=== PATIENT | female | born 1995 | race Caucasian/White ===

== ENCOUNTER 2019-07-04 21:43 | Observation (INO) | payer BC ==
[2019-07-04] MEDS ORDERED: SODIUM CHLORIDE 0.9% 1,000 ML IV STA ×2 (22:09→22:45)
[2019-07-04] MEDS ORDERED: ONDANSETRON 4 MG/2 ML VIAL IVP STA (22:10)
[2019-07-04 22:25] LABS: Basophils # (A) 0.1 k/uL (0-0.2); Basophils % (A) 1 %; Eosinophils # (A) 0.2 k/uL (0-0.7); Eosinophils % (A) 1 %; HCT 41.1 % (34.0-46.0); HGB 13.8 gm/dL (11.4-16.0); Lymphocytes # (A) 1.7 k/uL (1.0-4.8); Lymphocytes % (A) 12 %; MCH 31.4 pg (25.0-35.0); MCHC 33.7 g/dL (31.0-37.0); MCV 93.1 fL (80.0-100.0); Mean Platelet Volume 7.3; Monocytes # (A) 0.6 k/uL (0-1.0); Monocytes % (A) 4 %; Neutrophils # (A) 11.2 k/uL (1.3-7.7); Neutrophils % (A) 80 %; Platelet Count 163 k/uL (150-450); RBC 4.41 m/uL (3.80-5.40); RDW 11.9 % (11.5-15.5); WBC 13.9 k/uL (3.8-10.6)
[2019-07-04 22:27] LABS: Amorphous Sediment,Urine Rare /hpf; Appearance,Urine Cloudy (Clear); Bacteria,Urine Occasional /hpf; Bilirubin,Urine Negative (Negative); Blood,Urine Negative (Negative); Color,Urine Yellow; Glucose,Urine (UA) Negative (Negative); Ketones,Urine 1+ (Negative); Leukocyte Esterase,Urine Large (Negative); Mucus,Urine Few /hpf; Nitrite,Urine Negative (Negative); PH, Urine 8.5 (5.0-8.0); Protein,Urine 1+ (Negative); Specific Gravity,Urine 1.025 (1.001-1.035); Squamous Epithelial Cell,Urine 15 /hpf (0-4)
[2019-07-04 22:34] LABS: ALT 22 U/L (9-52); AST 21 U/L (14-36); African American GFR (CKD) >90 (>60 ml/min/1.73 sqM); Albumin 4.4 g/dL (3.5-5.0); Alkaline Phosphatase 75 U/L (38-126); Amylase 50 U/L (30-110); Anion Gap 12 mmol/L; Blood Urea Nitrogen 16 mg/dL (7-17); Calcium 9.3 mg/dL (8.4-10.2); Carbon Dioxide 24 mmol/L (22-30); Chloride 103 mmol/L (98-107); Glucose 140 mg/dL (74-99); Sodium 139 mmol/L (137-145); Total Bilirubin 2.6 mg/dL (0.2-1.3); Total Protein 7.4 g/dL (6.3-8.2)
[2019-07-04] MEDS ORDERED: KETOROLAC 30 MG/ML 1 ML VIAL IVP STA (22:45)
[2019-07-04 23:12] LABS: Amphetamine Screen,Urine Not Detected (NotDetected); Barbiturate Screen,Urine Not Detected (NotDetected); Benzodiazepines Screen,Urine Not Detected (NotDetected); Cocaine Screen,Urine Not Detected (NotDetected); Methadone Screen, Urine Not Detected (NotDetected); Opiate Screen,Urine Not Detected (NotDetected); Oxycodone Screen, Urine Not Detected (NotDetected); Phencyclidine Screen,Urine Not Detected (NotDetected); Tricyclic Antidepressant,Urine Not Detected (NotDetected); Urn Cannabinoid Scrn Detected (NotDetected)
--- NOTE | 2019-07-04 23:37 | CT ---
EXAMINATION TYPE: CT abdomen pelvis w con DATE OF EXAM: 07/04/2019 COMPARISON: None HISTORY: pain CT DLP: 505.8 mGycm Automated exposure control for dose reduction was used. TECHNIQUE: Helical acquisition of images was performed from the lung bases through the pelvis. CONTRAST: Performed without Oral Contrast and with IV Contrast, patient injected with 100 mL of Isovue 300. FINDINGS: Lung bases are clear. There is no pleural effusion. Heart size is normal. Liver spleen pancreas gallbladder appear normal. Bile ducts are not dilated. There is no adrenal mass. Kidneys show satisfactory contrast opacification. There is no hydronephrosi s. Ureters are not dilated. Bladder distends smoothly. Uterus is anteverted. There is no free fluid i n the pelvis. There is no inguinal hernia. There is probably a 2 cm cyst on the right ovary. There ap pears to be lateral thickened appendix that measures 9 to 10 mm. There is slight increased density in the periappendiceal fat. There is no sign of a bowel obstruction. There is no free air. There is no ascites. Lumbar spine is intact. Bony pelvis is intact. IMPRESSION: MILDLY THICKENED APPENDIX WITH VERY SLIGHT SURROUNDING INFLAMMATORY CHANGES THAT IS CONSISTENT WITH A PPENDICITIS.
[2019-07-05] MEDS ORDERED: PIPERACILLIN-TAZOBACTAM 3.375 GM in SODIUM CHLORIDE 0.9% 100 ML IVPB STA (00:05)
[2019-07-05] MEDS ORDERED: AMPICILLIN-SULBACTAM 3 GM in SODIUM CHLORIDE 0.9% 100 ML IVPB STA (00:16)
[2019-07-05] MEDS ORDERED: NALOXONE 0.4 MG/ML 1 ML VIAL IV PRN (00:18)
--- NOTE | 2019-07-05 00:18 | ED ---
General Adult HPI - General Chief complaint: Abdominal Pain Stated complaint: Vomiting,Abd Pain Time Seen by Provider: 07/04/19 21:57 Source: patient, family, RN notes reviewed Mode of arrival: ambulatory Limitations: no limitations - History of Present Illness Initial comments: 24-year-old female without any significant past medical history presents to the emergency department for a chief complete of abdominal pain times one day. Patient states this started several hours prior to arrival. States it is in her whole abdomen. States it is sharp in nature. Patient is in distress secondary to the pain. Patient states that prior to having the pain she has had nausea vomiting and diarrhea for about 2 days. Denies fevers at home.Patient has no ot her complaints at this time including shortness of breath, chest pain, nausea or vomiting, headache, or visual changes. - Related Data Allergies Allergy/AdvReac Type Severity Reaction Status Date / Time No Known Allergies Allergy Verified 07/04/19 21:47 Review of Systems ROS Statement: Those systems with pertinent positive or pertinent negative responses have been documented in the HPI. ROS Other: All systems not noted in ROS Statement are negative. Past Medical History Past Medical History: No Reported History History of Any Multi-Drug Resistant Organisms: None Reported Past Surgical History: No Surgical Hx Reported Past Psychological History: No Psychological Hx Reported Smoking Status: Current every day smoker Past Alcohol Use History: Occasional Past Drug Use History: None Reported, Marijuana General Exam Limitations: no limitations General appearance: alert, in no apparent distress Head exam: Present: atraumatic, normocephalic, normal inspection Eye exam: Present: normal appearance, PERRL, EOMI. Absent: scleral icterus, conjunctival injection, periorbital swelling ENT exam: Present: normal exam, mucous membranes moist Neck exam: Present: normal inspection. Absent: tenderness, meningismus, lymphadenopathy Respiratory exam: Present: normal lung sounds bilaterally. Absent: respiratory distress, wheezes, rales, rhonchi, stridor GI/Abdominal exam: Present: soft, tenderness (Right lower quadrant suprapubic tenderness with mild guarding, no rebound), normal bowel sounds. Absent: distended, rebound, rigid Expanded GI/Abdominal exam: Present: obturator sign, Rovsing's sign, tenderness at McBurney's Point. Absent: psoas sign, heel tap sign, Todd's sign Neurological exam: Present: alert Course Vital Signs 07/04/19 21:45 Temperature 98.6 F Pulse Rate 72 Respiratory 18 Rate Blood Pressure 109/61 O2 Sat by Pulse 98 Oximetry Procedures - [place] Protocol (Time Out) Nurse: Shyla Sherman Medical Decision Making - Medical Decision Making Initial exam was limited secondary to pain. However I did reevaluate patient after pain medication given and she does have findings consistent with elvin endicitis such as right lower quadrant pain, McBurney point tenderness, obturator sign and Rovsing sign. Patient does have a white blood cell count of 13.7. Mild elevated lactic acidosis of 2.7 which is likely secondary to vomiting and dehydration rather than severe sepsis.CT was ordered which showed mildly thickened appendix with very slight surrounding inflammatory changes consistent with appendicitis. Dr. Quintanilla spoke with Dr. Rasheed, recommends Unasyn. Patient will be admitted and made nothing by mouth. - Lab Data Result diagrams: 07/04/19 22:12 07/04/19 22:12 Lab Results 07/04/19 07/04/19 07/04/19 Range/Units 22:12 22:12 22:12 WBC 13.9 H (3.8-10.6) k/uL RBC 4.41 (3.80-5.40) m/uL Hgb 13.8 (11.4-16.0) gm/dL Hct 41.1 (34.0-46.0) % MCV 93.1 (80.0-100.0) fL MCH 31.4 (25.0-35.0) pg MCHC 33.7 (31.0-37.0) g/dL RDW 11.9 (11.5-15.5) % Plt Count 163 (150-450) k/uL Neutrophils % 80 % Lymphocytes % 12 % Monocytes % 4 % Eosinophils % 1 % Basophils % 1 % Neutrophils # 11.2 H (1.3-7.7) k/uL Lymphocytes # 1.7 (1.0-4.8) k/uL Monocytes # 0.6 (0-1.0) k/uL Eosinophils # 0.2 (0-0.7) k/uL Basophils # 0.1 (0-0.2) k/uL Sodium 139 (137-145) mmol/L Potassium 4.0 (3.5-5.1) mmol/L Chloride 103 (98-107) mmol/L Carbon Dioxide 24 (22-30) mmol/L Anion Gap 12 mmol/L BUN 16 (7-17) mg/dL Creatinine 0.78 (0.52-1.04) mg/dL Est GFR (CKD-EPI)AfAm >90 (>60 ml/min/1.73 sqM) Est GFR (CKD-EPI)NonAf >90 (>60 ml/min/1.73 sqM) Glucose 140 H (74-99) mg/dL Plasma Lactic Acid Deon (0.7-2.0) mmol/L Calcium 9.3 (8.4-10.2) mg/dL Total Bilirubin 2.6 H (0.2-1.3) mg/dL AST 21 (14-36) U/L ALT 22 (9-52) U/L Alkaline Phosphatase 75 (38-126) U/L Total Protein 7.4 (6.3-8.2) g/dL Albumin 4.4 (3.5-5.0) g/dL Amylase 50 (30-110) U/L Lipase 41 (23-300) U/L Urine Color Urine Appearance (Clear) Urine pH (5.0-8.0) Ur Specific [place] (1.001-1.035) Urine Protein (Negative) Urine Glucose (UA) (Negative) Urine Ketones (Negative) Urine Blood (Negative) Urine Nitrite (Negative) Urine Bilirubin (Negative) Urine Urobilinogen (<2.0) mg/dL Ur Leukocyte Esterase (Negative) Ur Squamous Epith Cells (0-4) /hpf Amorphous Sediment (None) /hpf Urine Bacteria (None) /hpf Urine Mucus (None) /hpf Urine HCG, Qual Not Detected (Not Detectd) Urine Opiates Screen (NotDetected) Ur Oxycodone Screen (NotDetected) Urine Methadone Screen (NotDetected) Ur Propoxyphene Screen (NotDetected) Ur Barbiturates Screen (NotDetected) U Tricyclic Antidepress (NotDetected) Ur Phencyclidine Scrn (NotDetected) Ur Amphetamines Screen (NotDetected) U Methamphetamines Scrn (NotDetected) U Benzodiazepines Scrn (NotDetected) Urine Cocaine Screen (NotDetected) U Marijuana (THC) Screen (NotDetected) 07/04/19 07/04/19 07/04/19 Range/Units 22:12 22:12 22:12 WBC (3.8-10.6) k/uL RBC (3.80-5.40) m/uL Hgb (11.4-16.0) gm/dL Hct (34.0-46.0) % MCV (80.0-100.0) fL MCH (25.0-35.0) pg MCHC (31.0-37.0) g/dL RDW (11.5-15.5) % Plt Count (150-450) k/uL Neutrophils % % Lymphocytes % % Monocytes % % Eosinophils % % Basophils % % Neutrophils # (1.3-7.7) k/uL Lymphocytes # (1.0-4.8) k/uL Monocytes # (0-1.0) k/uL Eosinophils # (0-0.7) k/uL Basophils # (0-0.2) k/uL Sodium (137-145) mmol/L Potassium (3.5-5.1) mmol/L Chloride (98-107) mmol/L Carbon Dioxide (22-30) mmol/L Anion Gap mmol/L BUN (7-17) mg/dL Creatinine (0.52-1.04) mg/dL Est GFR (CKD-EPI)AfAm (>60 ml/min/1.73 sqM) Est GFR (CKD-EPI)NonAf (>60 ml/min/1.73 sqM) Glucose (74-99) mg/dL Plasma Lactic Acid Deon 2.7 H* (0.7-2.0) mmol/L Calcium (8.4-10.2) mg/dL Total Bilirubin (0.2-1.3) mg/dL AST (14-36) U/L ALT (9-52) U/L Alkaline Phosphatase (38-126) U/L Total Protein (6.3-8.2) g/dL Albumin (3.5-5.0) g/dL Amylase (30-110) U/L Lipase (23-300) U/L Urine Color Yellow Urine Appearance Cloudy H (Clear) Urine pH 8.5 H (5.0-8.0) Ur Specific [place] 1.025 (1.001-1.035) Urine Protein 1+ H (Negative) Urine Glucose (UA) Negative (Negative) Urine Ketones 1+ H (Negative) Urine Blood Negative (Negative) Urine Nitrite Negative (Negative) Urine Bilirubin Negative (Negative) Urine Urobilinogen 3.0 (<2.0) mg/dL Ur Leukocyte Esterase Large H (Negative) Ur Squamous Epith Cells 15 H (0-4) /hpf Amorphous Sediment Rare H (None) /hpf Urine Bacteria Occasional H (None) /hpf Urine Mucus Few H (None) /hpf Urine HCG, Qual (Not Detectd) Urine Opiates Screen Not Detected (NotDetected) Ur Oxycodone Screen Not Detected (NotDetected) Urine Methadone Screen Not Detected (NotDetected) Ur Propoxyphene Screen Not Detected (NotDetected) Ur Barbiturates Screen Not Detected (NotDetected) U Tricyclic Antidepress Not Detected (NotDetected) Ur Phencyclidine Scrn Not Detected (NotDetected) Ur Amphetamines Screen Not Detected (NotDetected) U Methamphetamines Scrn Not Detected (NotDetected) U Benzodiazepines Scrn Not Detected (NotDetected) Urine Cocaine Screen Not Detected (NotDetected) U Marijuana (THC) Screen Detected H (NotDetected) Disposition Clinical Impression: Appendicitis Disposition: ADMITTED IP TO THIS [facility] Condition: Good Is patient prescribed a controlled substance at d/c from ED?: No Referrals: None,Stated [Primary Care Provider] - 1-2 days Time of Disposition: 00:17
[2019-07-05] MEDS: SODIUM CHLORIDE 0.9% 1,000 ML IV SCH ×3 (00:40→17:10)
[2019-07-05] MEDS: HYDROmorphone 0.5 MG/0.5 ML SYRINGE IVP PRN ×4 (01:01→11:12)
[2019-07-05 01:18] VITALS: BMI 17.2
[2019-07-05] MEDS: AMPICILLIN-SULBACTAM 3 GM in SODIUM CHLORIDE 0.9% 100 ML IVPB SCH ×2 (07:47→16:49)
[2019-07-05] MEDS ORDERED: HEPARIN SODIUM,PORCINE 5,000 UNIT/ML 1 ML VIAL SQ ONE (08:19)
[2019-07-05] MEDS ORDERED: SCOPOLAMINE 1.5MG/72HR PATCH TRANSDERM ONE (08:23)
[2019-07-05] MEDS ORDERED: LIDOCAINE 1% 20 ML VIAL (10MG/ML) FOR IV START INTRADERMA PRN (08:23)
[2019-07-05] MEDS ORDERED: METOCLOPRAMIDE 5 MG/ML 2 ML VIAL IVP PRN (08:23)
[2019-07-05] MEDS ORDERED: DEXAMETHASONE SOD PHOSPHATE 10 MG/ML 1 ML VIAL IV ONE (08:23)
[2019-07-05] MEDS ORDERED: HYDROmorphone 0.5 MG/0.5 ML SYRINGE IVP PRN (08:23)
--- NOTE | 2019-07-05 08:26 | P.GSHP ---
History of Present Illness H&P Date: 07/05/19 CHIEF COMPLAINT: Right lower quadrant abdominal pain with appendicitis for 1 day. HISTORY OF PRESENT ILLNESS: The patient is a previously healthy 24-year-old female who presents with less than day history of periumbilical with right lower quadrant abdominal pain that is crampy dull ache in nature. No reports of prior abdominal pain. She states the intensity of the pain is moderate. No reports of intractable nausea and vomiting. She reports the pain is dull and achy. Additional workup consistent with acute appendicitis. She has been admitted for acute appendicitis. PAST MEDICAL HISTORY: See list. PAST SURGICAL HISTORY: See list. CURRENT MEDICATIONS: See list. ALLERGIES: See list. SOCIAL HISTORY: See list. FAMILY HISTORY: No Crohns disease and ulcerative colitis. REVIEW OF ORGAN SYSTEMS: CONSTITUTIONAL: Present fever, no chills. Denies recent weight loss. HEENT: Denies any trouble with vision, hearing or nosebleeds. No difficulty swallowing. LYMPHATIC: The patient denies any lumps and bumps around the neck. ENDOCRINE: Denies any thyroid disorders. Denies any blood sugar glucose intolerance. RESPIRATORY: Denies shortness of breath including chronic cough. CARDIOVASCULAR: Denies history of chest pain with exertion. GASTROINTESTINAL: Denies regurgitation of bile at night as well as intermittent nausea. No blood in stools. GENITOURINARY: Denies any blood in urine or increased urinary frequency. ` MUSCULOSKELETAL: Denies current joint arthritis. NEUROLOGIC: Denies any numbness or tingling along the distal extremities. No seizure disorders or headaches. PSYCHIATRIC: Denies any depression or suicidal ideation. HEMATOLOGIC: Denies any abnormal bleeding or bruising. PHYSICAL EXAMINATION: GENERAL: A 11-year-old female in no acute distress. Pleasant. HEENT: No sclera icterus. Extraocular movements grossly intact. Moist buccal mucosa. Head is atraumatic, normocephalic. Hears conversational speech. No nasal drainage. NECK: Supple without lymphadenopathy. No JV distention. CHEST: Non-labored respirations and equal bilateral excursions. CARDIOVASCULAR: Regular rate and rhythm. Palpable 2+ radial pulses. ABDOMEN: Soft, tender at the right lower quadrant without guarding. MUSCULOSKELETAL: No clubbing, cyanosis or edema. NEUROLOGIC: No focal or lateralizing signs. PSYCH: Appropriate affect. Alert and oriented to person, place and time. SKIN: Well perfused. Good skin turgor. LABS: Reviewed. White blood cell count elevated over 13,000. STUDIES: CT of the abdomen and pelvis reviewed with findings consistent with appendicitis. ASSESSMENT: 1. Right lower quadrant pain. 2. Appendicitis 3. Leukocytosis. PLAN: 1. I have discussed benefits and risks of laparoscopic appendectomy described. 2. Bilateral SCDs. 3. Antibiotics intravenous Thank you very much for allowing me to participate in the care of your patient. Past Medical History Past Medical History: No Reported History History of Any Multi-Drug Resistant Organisms: None Reported Past Surgical History: No Surgical Hx Reported Additional Past Surgical History / Comment(s): umbillical hernia repair when Past Psychological History: No Psychological Hx Reported Smoking Status: Current every day smoker Past Alcohol Use History: Occasional Past Drug Use History: None Reported, Marijuana Medications and Allergies Allergies Allergy/AdvReac Type Severity Reaction Status Date / Time No Known Allergies Allergy Verified 07/04/19 21:47 Surgical - Exam Vital Signs Temp Pulse Resp BP Pulse Ox 98.6 F 72 18 109/61 98 07/04/19 21:45 07/04/19 21:45 07/04/19 21:45 07/04/19 21:45 07/04/19 21:45 Results - Labs 07/04/19 22:12 07/04/19 22:12 Abnormal Lab Results - Last 24 Hours (Table) 07/04/19 07/04/19 07/04/19 Range/Units 22:12 22:12 22:12 WBC 13.9 H (3.8-10.6) k/uL Neutrophils # 11.2 H (1.3-7.7) k/uL Glucose 140 H (74-99) mg/dL Plasma Lactic Acid Deon 2.7 H* (0.7-2.0) mmol/L Total Bilirubin 2.6 H (0.2-1.3) mg/dL Urine Appearance (Clear) Urine pH (5.0-8.0) Urine Protein (Negative) Urine Ketones (Negative) Ur Leukocyte Esterase (Negative) Ur Squamous Epith Cells (0-4) /hpf Amorphous Sediment (None) /hpf Urine Bacteria (None) /hpf Urine Mucus (None) /hpf U Marijuana (THC) Screen (NotDetected) 07/04/19 07/04/19 07/05/19 Range/Units 22:12 22:12 02:05 WBC (3.8-10.6) k/uL Neutrophils # (1.3-7.7) k/uL Glucose (74-99) mg/dL Plasma Lactic Acid Deon 0.6 L (0.7-2.0) mmol/L Total Bilirubin (0.2-1.3) mg/dL Urine Appearance Cloudy H (Clear) Urine pH 8.5 H (5.0-8.0) Urine Protein 1+ H (Negative) Urine Ketones 1+ H (Negative) Ur Leukocyte Esterase Large H (Negative) Ur Squamous Epith Cells 15 H (0-4) /hpf Amorphous Sediment Rare H (None) /hpf Urine Bacteria Occasional H (None) /hpf Urine Mucus Few H (None) /hpf U Marijuana (THC) Screen Detected H (NotDetected) Diabetes panel 07/04/19 Range/Units 22:12 Sodium 139 (137-145) mmol/L Potassium 4.0 (3.5-5.1) mmol/L Chloride 103 (98-107) mmol/L Carbon Dioxide 24 (22-30) mmol/L BUN 16 (7-17) mg/dL Creatinine 0.78 (0.52-1.04) mg/dL Glucose 140 H (74-99) mg/dL Calcium 9.3 (8.4-10.2) mg/dL AST 21 (14-36) U/L ALT 22 (9-52) U/L Alkaline Phosphatase 75 (38-126) U/L Total Protein 7.4 (6.3-8.2) g/dL Albumin 4.4 (3.5-5.0) g/dL Calcium panel 07/04/19 Range/Units 22:12 Calcium 9.3 (8.4-10.2) mg/dL Albumin 4.4 (3.5-5.0) g/dL Pituitary panel 07/04/19 Range/Units 22:12 Sodium 139 (137-145) mmol/L Potassium 4.0 (3.5-5.1) mmol/L Chloride 103 (98-107) mmol/L Carbon Dioxide 24 (22-30) mmol/L BUN 16 (7-17) mg/dL Creatinine 0.78 (0.52-1.04) mg/dL Glucose 140 H (74-99) mg/dL Calcium 9.3 (8.4-10.2) mg/dL Adrenal panel 07/04/19 Range/Units 22:12 Sodium 139 (137-145) mmol/L Potassium 4.0 (3.5-5.1) mmol/L Chloride 103 (98-107) mmol/L Carbon Dioxide 24 (22-30) mmol/L BUN 16 (7-17) mg/dL Creatinine 0.78 (0.52-1.04) mg/dL Glucose 140 H (74-99) mg/dL Calcium 9.3 (8.4-10.2) mg/dL Total Bilirubin 2.6 H (0.2-1.3) mg/dL AST 21 (14-36) U/L ALT 22 (9-52) U/L Alkaline Phosphatase 75 (38-126) U/L Total Protein 7.4 (6.3-8.2) g/dL Albumin 4.4 (3.5-5.0) g/dL
[2019-07-05] MEDS ORDERED: fentaNYL (PF) 50 MCG/ML 2 ML AMP ONE (09:01)
[2019-07-05] MEDS ORDERED: KETOROLAC 30 MG/ML 1 ML VIAL ONE (09:01)
[2019-07-05] MEDS ORDERED: LIDOCAINE 1% INJ 10MG/ML (20 ML MDV) ONE (09:01)
[2019-07-05] MEDS ORDERED: PROPOFOL 10 MG/ML 20 ML VIAL IV ONE (09:01)
[2019-07-05] MEDS ORDERED: ROCURONIUM BROMIDE 10 MG/ML 10 ML VIAL IV ONE (09:01)
[2019-07-05] MEDS ORDERED: GLYCOPYRROLATE 0.2 MG/ML 2 ML VIAL ONE (09:01)
[2019-07-05] MEDS ORDERED: NEOSTIGMINE 1 MG/ML 10 ML VIAL ONE (09:01)
[2019-07-05] MEDS ORDERED: MIDAZOLAM 2 MG/2 ML VIAL ONE (09:01)
[2019-07-05] MEDS ORDERED: IV FLUID CONTINUATION 400 ML IV ONE (09:05)
[2019-07-05] MEDS ORDERED: BUPIVACAINE (PF) 0.25% 30 ML VIAL SQ ONE ×2 (09:37→09:53)
[2019-07-05] MEDS ORDERED: LACTATED RINGERS 1,000 ML IV ONE (09:53)
[2019-07-05] MEDS ORDERED: ACETAMINOPHEN TAB 325 MG TAB PO PRN (09:59)
--- NOTE | 2019-07-05 10:01 | P.OP ---
Date of Procedure: 07/05/19 Description of Procedure: SURGEON: [place] MD INTERNAL WHOLESALER: None. PREOPERATIVE DIAGNOSES: 1. Right lower quadrant abdominal pain. 2. Acute appendicitis. 3. Leukocytosis. 4. Tobacco abuse POSTOPERATIVE DIAGNOSES: 1. Right lower quadrant abdominal pain. 2. Acute appendicitis. 3. Leukocytosis. 4. Tobacco abuse PROCEDURES PERFORMED: 1. Laparoscopic appendectomy. ANESTHESIA: General with local ESTIMATED BLOOD LOSS: 5 mL. SPECIMENS REMOVED: Appendix COMPLICATIONS: None. OPERATIVE FINDINGS: 1. Acute appendicitis with dilation of the appendix and periappendicitis 2. Unremarkable small bowel and terminal ileum. 3. Liver unremarkable. 4. The colon was unremarkable INDICATIONS: The patient is a 24-year-old female who presents with less than a 24-hour history of right lower quadrant abdominal pain. She reported nausea, including anorexia. CT of the abdomen and pelvis was obtained demonstrating findings consistent with acute appendicitis. Benefits and risks, including possibility of open technique were described at length. Informed consent was obtained. DESCRIPTION OR PROCEDURE: Patient was brought to the operating room, laid in supine position. After general induction, the abdomen was prepped and draped in standard sterile fashion. Prior to incision, a timeout protocol was confirmed with surgical team regarding patient's name including procedure to be performed. Preoperative antibiotics were given intraoperatively. Additionally, bilateral SCDs including heparin 5000 units was administered. A left upper quadrant incision was made after localizing the skin with anesthetic. A 0 degree 5 mm laparoscopic trocar entry was performed and entered into the peritoneal cavity. The abdomen was insufflated to 15 mmHg of pressure, which she tolerated well. Diagnostic laparoscopy demonstrated no injury to bowel, viscera or mesentery. A 5 mm port was placed just above the pubis. A separate 12 mm port was placed at the left lower quadrant all under direct visualization. The patient was placed in Trendelenburg position with the right side up. The gallbladder was unremarkable. The base of the cecum was without inflammation. The appendix was dilated and with periappendicitis consistent with acute appendicitis. A 45 mm Endo NISHANT echelon stapler was fired across using a mcallister vascular load. Mild arterial bleed was encountered and cauterized using Bovie cautery. The specimen was removed from the abdominal cavity with a Amy through the 12 mm trocar. All instruments and pneumoperitoneum were evacuated from the abdominal cavity. The fascial defect was less than 8-mm in size. Local was infiltrated in all wounds for postop analgesia. Dermabond was applied to the skin after reapproximating the incisions with 4-0 Monocryl as described. At the end of the procedure, needle, sponge, and instrument count was verified correct by certified surgical assistant. The patient had tolerated the procedure well, was taken to the postanesthesia care unit in stable condition. Intraoperative abdominal films were described and discussed with her family who were overall pleased with her level of care.
[2019-07-05 10:47] VITALS: RESP 16
[2019-07-05] MEDS: LACTATED RINGERS 1,000 ML IV SCH (12:03)
[2019-07-05] MEDS: ONDANSETRON 4 MG/2 ML VIAL IVP PRN ×2 (12:47→18:47)
[2019-07-05] MEDS: PIPERACILLIN-TAZOBACTAM 3.375 GM in SODIUM CHLORIDE 0.9% 100 ML IVPB SCH ×2 (12:47→18:04)
[2019-07-05] MEDS: KETOROLAC 30 MG/ML 1 ML VIAL IVP SCH ×3 (12:48→22:54)
[2019-07-05] MEDS: HYDROcodone/APAP 5-325MG 1 EACH TAB PO PRN ×3 (14:07→21:41)
[2019-07-05] MEDS: MAGNESIUM HYDROXIDE 2,400 MG/10 ML CUP PO SCH (20:20)
[2019-07-05] MEDS ORDERED: SCOPOLAMINE 1.5MG/72HR PATCH TRANSDERM STA (21:52)
[2019-07-05] MEDS ORDERED: SODIUM CHLORIDE 0.9% 1,000 ML IV ONE (21:53)
[2019-07-06] MEDS: AMPICILLIN-SULBACTAM 3 GM in SODIUM CHLORIDE 0.9% 100 ML IVPB SCH ×2 (00:31→07:12)
[2019-07-06] MEDS: PIPERACILLIN-TAZOBACTAM 3.375 GM in SODIUM CHLORIDE 0.9% 100 ML IVPB SCH ×2 (02:20→10:09)
[2019-07-06] MEDS: SODIUM CHLORIDE 0.9% 1,000 ML IV SCH ×2 (02:23→07:18)
[2019-07-06] MEDS: KETOROLAC 30 MG/ML 1 ML VIAL IVP SCH ×2 (04:13→13:18)
[2019-07-06] MEDS: MAGNESIUM HYDROXIDE 2,400 MG/10 ML CUP PO SCH (07:11)
[2019-07-06] MEDS: LACTATED RINGERS 1,000 ML IV SCH (07:18)
[2019-07-06 07:20] VITALS: BP 106/58; PULSE 58; TEMP 97.8
[2019-07-06 07:30] LABS: Basophils % (A) 0 %; Eosinophils # (A) 0.2 k/uL (0-0.7); Eosinophils % (A) 4 %; HCT 34.1 % (34.0-46.0); HGB 11.5 gm/dL (11.4-16.0); Lymphocytes # (A) 1.6 k/uL (1.0-4.8); Lymphocytes % (A) 29 %; MCH 31.6 pg (25.0-35.0); MCHC 33.6 g/dL (31.0-37.0); MCV 93.9 fL (80.0-100.0); Mean Platelet Volume 7.4; Monocytes # (A) 0.3 k/uL (0-1.0); Monocytes % (A) 6 %; Neutrophils # (A) 3.1 k/uL (1.3-7.7); Neutrophils % (A) 58 %; Platelet Count 125 k/uL (150-450); RBC 3.64 m/uL (3.80-5.40); RDW 12.1 % (11.5-15.5); WBC 5.4 k/uL (3.8-10.6)
[2019-07-06] MEDS: HYDROcodone/APAP 5-325MG 1 EACH TAB PO PRN (10:21)
--- NOTE | 2019-07-06 11:46 | P.DS ---
Providers Date of admission: 07/05/19 00:16 Expected date of discharge: 07/06/19 Attending physician: Yadira Rasheed Primary care physician: Stated None - Discharge Diagnosis(es) (1) Leukocytosis Status: Acute (2) Right lower quadrant abdominal pain Status: Acute (3) Appendicitis Status: Acute (4) Tobacco use Status: Acute Hospital Course: POSTOPERATIVE DIAGNOSES: 1. Right lower quadrant abdominal pain. 2. Acute appendicitis with periappendicitis 3. Leukocytosis. 4. Tobacco abuse INDICATIONS: The patient is a 24-year-old female who presents with less than a 24-hour history of right lower quadrant abdominal pain. She reported nausea, including anorexia. CT of the abdomen and pelvis was obtained demonstrating findings consistent with acute appendicitis. Patient is status post appendectomy. She had periappendicitis without perforation. She had severe postop nausea and vomiting that resolved after antiemetics and scopolamine patch. She is tolerating diet. Pain is controlled. Discharge instructions were reviewed. Patient was cleared for discharge. She will follow-up in the office in 48-72 hours. Procedures: PROCEDURES PERFORMED: 1. Laparoscopic appendectomy. ANESTHESIA: General with local ESTIMATED BLOOD LOSS: 5 mL. SPECIMENS REMOVED: Appendix COMPLICATIONS: None. OPERATIVE FINDINGS: 1. Acute appendicitis with dilation of the appendix and periappendicitis 2. Unremarkable small bowel and terminal ileum. 3. Liver unremarkable. 4. The colon was unremarkable Patient Condition at Discharge: Good Plan - Discharge Summary Discharge Rx Participant: Yes New Discharge Prescriptions: New Ibuprofen [Motrin] 600 mg PO Q8HR PRN #30 tab PRN Reason: Pain Acetaminophen Tab [Tylenol Tab] 500 mg PO Q6H PRN #30 tablet PRN Reason: Pain Discharge Medication List Acetaminophen Tab [Tylenol Tab] 500 mg PO Q6H PRN #30 tablet 07/06/19 [Rx] Ibuprofen [Motrin] 600 mg PO Q8HR PRN #30 tab 07/06/19 [Rx] Follow up Appointment(s)/Referral(s): Yadira Rasheed MD [STAFF PHYSICIAN] - 07/08/19 (Please call to confirm time) None,Stated [Primary Care Provider] - 1-2 days (office closed at time of discharge. Please call to make appointment) Activity/Diet/Wound Care/Special Instructions: No lifting over 10 pounds in 2 weeks, until July 19. December shower. No bath tub soaks, until July 19. Diet as tolerated. Discharge Disposition: HOME SELF-CARE
== END 2019-07-06 13:57 | disposition home or self-care (01) ==
LOC: EC 21:43 → 4SSUR 07-05 00:16
PROVIDERS: ADMIT Surgery Plastic and Reconstructive Surgery; ATTEND Surgery Plastic and Reconstructive Surgery
DX: K35.80 Unspecified acute appendicitis (principal); E87.2 Acidosis; K91.0 Vomiting following gastrointestinal surgery; F17.290 Nicotine dependence, other tobacco product, uncomplicated; F12.10 Cannabis abuse, uncomplicated
CPT/HCPCS: 44970; 96361; 96374; 96375; 99285; 36415 ×2; 88304; 80053; 82150; 83605 ×2; 83690; 85025 ×2; 81001; 81025; 87040; 80306; 74177; G0378 ×2; J2543 ×2; J2250; J2710; J0690; J2405 ×2; J2001; J3010; J1885 ×2; J0295 ×2; J2704; J1170; Q9967

== ENCOUNTER 2020-11-25 22:26 | Emergency (ER) | payer BC, OTHER ==
[2020-11-25 22:42] VITALS: RESP 18
[2020-11-25] MEDS ORDERED: IBUPROFEN 600 MG TAB PO STA (23:25)
[2020-11-25] MEDS ORDERED: ACETAMINOPHEN TAB 500 MG TAB PO STA (23:25)
[2020-11-25 23:58] LABS: Appearance,Urine Clear (Clear); Bilirubin,Urine Negative (Negative); Blood,Urine Negative (Negative); Color,Urine Yellow; Glucose,Urine (UA) Negative (Negative); Ketones,Urine Negative (Negative); Leukocyte Esterase,Urine Large (Negative); Mucus,Urine Many /hpf; Nitrite,Urine Negative (Negative); PH, Urine 6.5 (5.0-8.0); Protein,Urine Trace (Negative); RBC,Urine 2 /hpf (0-5); Specific Gravity,Urine 1.029 (1.001-1.035); Squamous Epithelial Cell,Urine 9 /hpf (0-4); Urobilinogen,Urine <2.0 mg/dL (<2.0); WBC,Urine 32 /hpf (0-5)
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
[2020-11-26 02:17] VITALS: BP 116/50; PULSE 72; TEMP 98.7
== END 2020-11-26 01:10 | disposition home or self-care (01) ==
LOC: EC 22:26
DX: R07.9 Chest pain, unspecified (principal); Y92.410 Unspecified street and highway as the place of occurrence of the external cause; Z79.1 Long term (current) use of non-steroidal anti-inflammatories (NSAID); V43.52XA Car driver injured in collision with other type car in traffic accident, initial encounter
CPT/HCPCS: 71045; 81001; 81025; 87086; 99284; 99285

== ENCOUNTER → 2020-12-27 | Outpatient (CLI) | payer OTHER ==
--- NOTE | 2020-12-27 11:14 | USB ---
Reason for exam: clinical finding. History: Family history of breast cancer in maternal grandmother. Indicated problem(s): palpable abnormality and pain in both breasts. Physical Findings: Nurse Summary: multiple palpable bilaterally (nurse db). US Breast BILAT Right complete breast ultrasound includes all four quadrants, the retroareolar region and axilla. Finding demonstrates no cystic or solid lesion seen. Left complete breast ultrasound includes all four quadrants, the retroareolar region and axilla. Finding demonstrates no cystic or solid lesion seen. Density tissue bilaterally. These results were verbally communicated with the patient and result sheet given to the patient on 12/27/20. ASSESSMENT: Benign, BI-RAD 2 RECOMMENDATION: Clinical management of both breasts. Manage patient on a clinical basis.
== END | disposition home or self-care (01) ==
LOC: RADUSWWP 09:40
PROVIDERS: ATTEND Family Medicine
DX: R92.8 Other abnormal and inconclusive findings on diagnostic imaging of breast (principal); Z80.3 Family history of malignant neoplasm of breast

== ENCOUNTER 2021-04-17 20:46 | Emergency (ER) | payer OTHER ==
--- NOTE | 2021-04-17 21:43 | XR ---
EXAMINATION TYPE: XR chest 2V DATE OF EXAM: 04/17/2021 COMPARISON: Chest radiograph 11/26/2020 HISTORY: Shortness of breath, COVID positive TECHNIQUE: Frontal and lateral views of the chest are obtained. FINDINGS: There is no focal air space opacity, pleural effusion, or pneumothorax seen. The cardiac silhouette size is within normal limits. The osseous structures are intact. IMPRESSION: No acute cardiopulmonary process.
--- NOTE | 2021-04-17 22:06 | ED ---
General Adult HPI - General Chief complaint: Upper Respiratory Infection Stated complaint: +COVID, SOB Time Seen by Provider: 04/17/21 21:23 Source: patient, RN notes reviewed Mode of arrival: ambulatory - History of Present Illness Initial comments: 26-year-old female without any significant past medical history presents to the emergency room for a chief complaint of positive Covid symptoms. Patient reports that 12 days ago she started to have symptoms of Covid. About 8 days ago she tested positive. States that she has had chest congestion and not felt well. She states she started to feel better yesterday and then today she started to get the chest congestion again. Patient states she is concerned about her lungs. States she is nervous that she could have pneumonia.Patient has no other complaints at this time including shortness of breath, chest pain, abdominal pain, nausea or vomiting, headache, or visual changes. - Related Data Home Medications Medication Instructions Recorded Confirmed Ibuprofen [Motrin Ib] 600 mg PO Q8H PRN 11/25/20 04/17/21 Omeprazole [PriLOSEC] 20 mg PO DAILY 04/17/21 04/17/21 Previous Rx's Medication Instructions Recorded Acetaminophen Tab [Tylenol Tab] 500 mg PO Q6H PRN #30 tablet 07/06/19 guaiFENesin [Mucinex] 600 mg PO Q12HR PRN #20 tablet.er 04/17/21 Allergies Allergy/AdvReac Type Severity Reaction Status Date / Time No Known Allergies Allergy Verified 04/17/21 21:56 Review of Systems ROS Statement: Those systems with pertinent positive or pertinent negative responses have been documented in the HPI. ROS Other: All systems not noted in ROS Statement are negative. Past Medical History Past Medical History: No Reported History History of Any Multi-Drug Resistant Organisms: None Reported Past Surgical History: Appendectomy Additional Past Surgical History / Comment(s): umbillical hernia repair when Past Psychological History: No Psychological Hx Reported Smoking Status: Vaper Past Alcohol Use History: None Reported, Occasional Past Drug Use History: None Reported, Marijuana General Exam General appearance: alert Head exam: Present: atraumatic Eye exam: Present: normal appearance, PERRL, EOMI. Absent: scleral icterus ENT exam: Present: normal exam, mucous membranes moist Neck exam: Present: normal inspection, full ROM. Absent: tenderness Respiratory exam: Present: normal lung sounds bilaterally. Absent: respiratory distress, wheezes Cardiovascular Exam: Present: regular rate, normal rhythm, normal heart sounds Course Vital Signs 04/17/21 20:55 Temperature 98.8 F Pulse Rate 96 Respiratory 19 Rate Blood Pressure 114/78 O2 Sat by Pulse 99 Oximetry Medical Decision Making - Medical Decision Making Vitals are stable. Patient is well-appearing. No respiratory distress. Chest x-ray shows no acute cardio pulmonary process. Patient does not qualify for antibody infusion at this time given she has had symptoms for at least 12 days. She also does not have any risk factors. Patient will be discharged home to follow up with primary care. Will return here for any worsening symptoms. Disposition Clinical Impression: COVID-19 Disposition: HOME SELF-CARE Condition: Good Instructions (If sedation given, give patient instructions): Coronavirus Disease 2019 (COVID-19) Additional Instructions: Please take medication as directed. Follow-up with your doctor in one to 2 days. Return to the emergency room for any worsening symptoms. Prescriptions: guaiFENesin [Mucinex] 600 mg PO Q12HR PRN #20 tablet.er PRN Reason: Congestion Is patient prescribed a controlled substance at d/c from ED?: No Referrals: Alysia Yi DO [Primary Care Provider] - 1-2 days Time of Disposition: 22:05
[2021-04-17 22:26] VITALS: BP 112/77; PULSE 94; RESP 18; TEMP 98.7
== END 2021-04-17 22:25 | disposition home or self-care (01) ==
LOC: EC 20:46
DX: U07.1 COVID-19 (principal); F17.290 Nicotine dependence, other tobacco product, uncomplicated; Z79.1 Long term (current) use of non-steroidal anti-inflammatories (NSAID); Z79.899 Other long term (current) drug therapy; Z90.49 Acquired absence of other specified parts of digestive tract
CPT/HCPCS: 71046; 99285

== ENCOUNTER 2021-08-17 06:51 | Emergency (ER) | payer OTHER ==
[2021-08-17 07:10] VITALS: BP 122/79; PULSE 100; RESP 20; TEMP 97.9
[2021-08-17] MEDS ORDERED: ONDANSETRON 4 MG/2 ML VIAL IVP STA (07:40)
[2021-08-17] MEDS ORDERED: SODIUM CHLORIDE 0.9% 1,000 ML IV STA (07:40)
[2021-08-17] MEDS ORDERED: KETOROLAC 15 MG/ML 1 ML VIAL IVP STA (07:40)
--- NOTE | 2021-08-17 07:48 | ED ---
General Adult HPI - General Chief complaint: Back Pain/Injury Stated complaint: Back Pain Time Seen by Provider: 08/17/21 07:20 Source: patient, RN notes reviewed Mode of arrival: ambulatory - History of Present Illness Initial comments: This 26-year-old female presents to the emergency department with lower back pain that began at 10 PM last night. She states the pain is relieved with leaning forward and worse lying back or moving around. She rates her pain as 7/10. Patient states the pain is constant and radiating to her lower abdomen. She denies taking medication for her pain, but admits to taking and edible a couple hours ago which has not helped her pain. Patient states she also has vomiting and diarrhea. Patient states she is currently on her menstrual cycle and does experience this kind of back and abdominal pain, however, it usually is not this severe. Patient currently takes control and is sexually active. She denies loss of bowel or bladder, recent trauma, kidney stones in her past, or chest pain. - Related Data Home Medications Medication Instructions Recorded Confirmed Norgestimate-Ethinyl Estradiol 1 tab PO HS 08/17/21 08/17/21 [[place]on[place] 28 Tablet] Previous Rx's Medication Instructions Recorded Ondansetron [Zofran ODT] 4 mg PO Q8HR #14 tab 08/17/21 Allergies Allergy/AdvReac Type Severity Reaction Status Date / Time No Known Allergies Allergy Verified 08/17/21 08:54 Review of Systems ROS Statement: Those systems with pertinent positive or pertinent negative responses have been documented in the HPI. ROS Other: All systems not noted in ROS Statement are negative. Past Medical History Past Medical History: No Reported History History of Any Multi-Drug Resistant Organisms: None Reported Past Surgical History: Appendectomy Additional Past Surgical History / Comment(s): umbillical hernia repair when infant Past Psychological History: Anxiety, Depression Smoking Status: Vaper Past Alcohol Use History: None Reported Past Drug Use History: Marijuana General Exam General appearance: alert Head exam: Present: atraumatic, normocephalic, normal inspection Eye exam: Present: normal appearance ENT exam: Present: normal exam Neck exam: Present: normal inspection. Absent: tenderness, meningismus, lymphadenopathy Respiratory exam: Present: normal lung sounds bilaterally. Absent: respiratory distress, wheezes, rales, rhonchi, stridor Cardiovascular Exam: Present: regular rate, normal rhythm, normal heart sounds. Absent: systolic murmur, diastolic murmur, rubs, gallop, clicks GI/Abdominal exam: Present: soft, tenderness, normal bowel sounds Back exam: Present: full ROM, CVA tenderness (L), paraspinal tenderness (lumbar spine) Neurological exam: Present: alert, oriented X3 Psychiatric exam: Present: normal affect Skin exam: Present: warm, dry, intact, normal color. Absent: rash Course Vital Signs 08/17/21 07:06 Temperature 97.9 F Pulse Rate 100 Respiratory 20 Rate Blood Pressure 122/79 O2 Sat by Pulse 97 Oximetry Medical Decision Making - Medical Decision Making This 26-year-old female presents with abdominal pain. CT showed mesenteric adenitis. Labs within normal limits. Return precautions discussed patient discharged home in stable condition. Offered patient transvaginal ultrasound to rule out any ovarian issues. Patient declined and stated she would come back to the ED if symptoms come back or worsen. - Lab Data Result diagrams: 08/17/21 07:50 08/17/21 07:50 Lab Results 08/17/21 08/17/21 08/17/21 Range/Units 07:50 07:50 08:33 WBC 8.3 (3.8-10.6) k/uL RBC 4.33 (3.80-5.40) m/uL Hgb 14.1 (11.4-16.0) gm/dL Hct 41.1 (34.0-46.0) % MCV 95.0 (80.0-100.0) fL MCH 32.5 (25.0-35.0) pg MCHC 34.2 (31.0-37.0) g/dL RDW 11.4 L (11.5-15.5) % Plt Count 160 (150-450) k/uL MPV 8.0 Neutrophils % 83 % Lymphocytes % 10 % Monocytes % 4 % Eosinophils % 2 % Basophils % 1 % Neutrophils # 7.0 (1.3-7.7) k/uL Lymphocytes # 0.8 L (1.0-4.8) k/uL Monocytes # 0.3 (0-1.0) k/uL Eosinophils # 0.2 (0-0.7) k/uL Basophils # 0.1 (0-0.2) k/uL Sodium 135 L (137-145) mmol/L Potassium 3.9 (3.5-5.1) mmol/L Chloride 105 (98-107) mmol/L Carbon Dioxide 24 (22-30) mmol/L Anion Gap 6 mmol/L BUN 14 (7-17) mg/dL Creatinine 0.74 (0.52-1.04) mg/dL Est GFR (CKD-EPI)AfAm >90 (>60 ml/min/1.73 sqM) Est GFR (CKD-EPI)NonAf >90 (>60 ml/min/1.73 sqM) Glucose 114 H (74-99) mg/dL Calcium 8.8 (8.4-10.2) mg/dL Total Bilirubin 1.7 H (0.2-1.3) mg/dL AST 27 (14-36) U/L ALT 26 (4-34) U/L Alkaline Phosphatase 49 (38-126) U/L Total Protein 6.7 (6.3-8.2) g/dL Albumin 3.7 (3.5-5.0) g/dL Lipase 25 (23-300) U/L Urine Color Yellow Urine Appearance Cloudy H (Clear) Urine pH 7.0 (5.0-8.0) Ur Specific [place] 1.032 (1.001-1.035) Urine Protein 1+ H (Negative) Urine Glucose (UA) Negative (Negative) Urine Ketones 1+ H (Negative) Urine Blood Negative (Negative) Urine Nitrite Negative (Negative) Urine Bilirubin Negative (Negative) Urine Urobilinogen 8.0 (<2.0) mg/dL Ur Leukocyte Esterase Trace H (Negative) Urine RBC 1 (0-5) /hpf Urine WBC 1 (0-5) /hpf Ur Squamous Epith Cells 6 H (0-4) /hpf Urine Mucus Many H (None) /hpf Urine HCG, Qual (Not Detectd) 08/17/21 Range/Units 08:33 WBC (3.8-10.6) k/uL RBC (3.80-5.40) m/uL Hgb (11.4-16.0) gm/dL Hct (34.0-46.0) % MCV (80.0-100.0) fL MCH (25.0-35.0) pg MCHC (31.0-37.0) g/dL RDW (11.5-15.5) % Plt Count (150-450) k/uL MPV Neutrophils % % Lymphocytes % % Monocytes % % Eosinophils % % Basophils % % Neutrophils # (1.3-7.7) k/uL Lymphocytes # (1.0-4.8) k/uL Monocytes # (0-1.0) k/uL Eosinophils # (0-0.7) k/uL Basophils # (0-0.2) k/uL Sodium (137-145) mmol/L Potassium (3.5-5.1) mmol/L Chloride (98-107) mmol/L Carbon Dioxide (22-30) mmol/L Anion Gap mmol/L BUN (7-17) mg/dL Creatinine (0.52-1.04) mg/dL Est GFR (CKD-EPI)AfAm (>60 ml/min/1.73 sqM) Est GFR (CKD-EPI)NonAf (>60 ml/min/1.73 sqM) Glucose (74-99) mg/dL Calcium (8.4-10.2) mg/dL Total Bilirubin (0.2-1.3) mg/dL AST (14-36) U/L ALT (4-34) U/L Alkaline Phosphatase (38-126) U/L Total Protein (6.3-8.2) g/dL Albumin (3.5-5.0) g/dL Lipase (23-300) U/L Urine Color Urine Appearance (Clear) Urine pH (5.0-8.0) Ur Specific [place] (1.001-1.035) Urine Protein (Negative) Urine Glucose (UA) (Negative) Urine Ketones (Negative) Urine Blood (Negative) Urine Nitrite (Negative) Urine Bilirubin (Negative) Urine Urobilinogen (<2.0) mg/dL Ur Leukocyte Esterase (Negative) Urine RBC (0-5) /hpf Urine WBC (0-5) /hpf Ur Squamous Epith Cells (0-4) /hpf Urine Mucus (None) /hpf Urine HCG, Qual Not Detected (Not Detectd) Disposition Clinical Impression: Mesenteric adenitis, Abdominal pain Disposition: HOME SELF-CARE Condition: Stable Instructions (If sedation given, give patient instructions): Abdominal Pain (ED) Additional Instructions: Please return to the ED if worsening symptoms occur. Take Tylenol or Motrin as directed. Prescriptions: Ondansetron [Zofran ODT] 4 mg PO Q8HR #14 tab Is patient prescribed a controlled substance at d/c from ED?: No Referrals: Alysia Yi DO [Primary Care Provider] - 1-2 days Time of Disposition: 10:24
[2021-08-17 08:12] LABS: Basophils # (A) 0.1 k/uL (0-0.2); Basophils % (A) 1 %; Eosinophils # (A) 0.2 k/uL (0-0.7); Eosinophils % (A) 2 %; HCT 41.1 % (34.0-46.0); HGB 14.1 gm/dL (11.4-16.0); Lymphocytes # (A) 0.8 k/uL (1.0-4.8); Lymphocytes % (A) 10 %; MCH 32.5 pg (25.0-35.0); MCHC 34.2 g/dL (31.0-37.0); Monocytes # (A) 0.3 k/uL (0-1.0); Monocytes % (A) 4 %; Neutrophils % (A) 83 %; Platelet Count 160 k/uL (150-450); RBC 4.33 m/uL (3.80-5.40); RDW 11.4 % (11.5-15.5); WBC 8.3 k/uL (3.8-10.6)
[2021-08-17 08:30] LABS: ALT 26 U/L (4-34); AST 27 U/L (14-36); African American GFR (CKD) >90 (>60 ml/min/1.73 sqM); Albumin 3.7 g/dL (3.5-5.0); Alkaline Phosphatase 49 U/L (38-126); Anion Gap 6 mmol/L; Blood Urea Nitrogen 14 mg/dL (7-17); Calcium 8.8 mg/dL (8.4-10.2); Carbon Dioxide 24 mmol/L (22-30); Chloride 105 mmol/L (98-107); Glucose 114 mg/dL (74-99); Lipase 25 U/L (23-300); Non-African American GFR(CKD) >90 (>60 ml/min/1.73 sqM); Potassium 3.9 mmol/L (3.5-5.1); Sodium 135 mmol/L (137-145); Total Bilirubin 1.7 mg/dL (0.2-1.3); Total Protein 6.7 g/dL (6.3-8.2)
[2021-08-17 08:58] LABS: Appearance,Urine Cloudy (Clear); Bilirubin,Urine Negative (Negative); Blood,Urine Negative (Negative); Color,Urine Yellow; Glucose,Urine (UA) Negative (Negative); Ketones,Urine 1+ (Negative); Leukocyte Esterase,Urine Trace (Negative); Mucus,Urine Many /hpf; Nitrite,Urine Negative (Negative); Protein,Urine 1+ (Negative); RBC,Urine 1 /hpf (0-5); Specific Gravity,Urine 1.032 (1.001-1.035); Squamous Epithelial Cell,Urine 6 /hpf (0-4); WBC,Urine 1 /hpf (0-5)
--- NOTE | 2021-08-17 09:38 | CT ---
EXAMINATION TYPE: CT abdomen pelvis wo con DATE OF EXAM: 08/17/2021 COMPARISON: 07/04/2019 HISTORY: 26-year-old female with bilateral flank pain, nausea, vomiting CT DLP: 252.1 mGycm. Automated exposure control for dose reduction was used. TECHNIQUE: Contiguous axial scanning of the abdomen and pelvis without IV contrast. Coronal and sagit carlin reconstructions performed. FINDINGS: Heart normal size without pericardial effusion. Lung bases clear without pleural effusion. Noncontrast appearance of the liver, gallbladder, adrenal glands, spleen, and pancreas show no gross adenopathy. Lack of IV contrast and paucity of intra-abdominal fat limits the assessment. There are numerous punctate bilateral renal calculi and suggestion of some increased density in the r egion of the renal pyramids. No hydronephrosis is seen on either side. No dilated small bowel, free fluid, or free air. Assessment of mesenteric lymphadenopathy is limited. Scattered prominent lymph nodes measuring up to 7 mm. Surgical material right lower quadrant from interval appendectomy. No significant stool burden. No pe ricolonic inflammatory change. Bladder not distended. Uterus anteverted. Mild cul-de-sac free fluid. Ovaries not clearly delineated from adjacent bowel loops. Bones: No osseous destructive process. IMPRESSION: 1. Numerous punctate nonobstructive bilateral renal calculi. No hydronephrosis. 2. Additionally, there is increased density in the region of the bilateral medullary pyramids which may represent concentrated renal salts. Consider medullary sponge kidney or other causes of medullary nephrocalcinosis. 3. Scattered prominent mesenteric lymph nodes measuring up to 7 mm may be reactive/post inflammatory . Consider mesenteric adenitis.
== END 2021-08-17 10:49 | disposition home or self-care (01) ==
LOC: EC 06:51
DX: I88.0 Nonspecific mesenteric lymphadenitis (principal); F41.9 Anxiety disorder, unspecified; F32.A Depression, unspecified; F17.290 Nicotine dependence, other tobacco product, uncomplicated; F12.90 Cannabis use, unspecified, uncomplicated; Z90.49 Acquired absence of other specified parts of digestive tract
CPT/HCPCS: 99284; 96374; 96375; 96361; 36415; 80053; 83690; 85025; 81001; 81025; 74176; J2405; J1885

== ENCOUNTER → 2022-01-27 | Outpatient (CLI) | payer OTHER ==
[2022-01-27 11:29] LABS: Basophils # (A) 0.06 X 10*3/uL (0.00-0.10); Basophils % (A) 0.5 %; Eosinophils # (A) 0.29 X 10*3/uL (0.04-0.35); Eosinophils % (A) 2.2 %; HCT 44.4 % (37.2-46.3); HGB 14.2 g/dL (12.0-15.0); Immature Grans, Automated 0.3 %; Lymphocytes # (A) 2.46 X 10*3/uL (0.90-5.00); Lymphocytes % (A) 18.6 %; MCH 30.6 pg (27.0-32.0); MCV 95.7 fL (80.0-97.0); Mean Platelet Volume 11.1 fL (9.5-12.2); Monocytes # (A) 0.79 X 10*3/uL (0.20-1.00); NRBC Per 100 WBC 0 /100 WBCS (0.0-0.0); Neutrophils # (A) 9.62 X 10*3/uL (1.80-7.70); Neutrophils % (A) 72.4 %; Platelet Count 205 X 10*3/uL (140-440); RBC 4.64 X 10*6/uL (4.10-5.20); WBC 13.26 X 10*3/uL (4.50-10.00)
[2022-01-27 11:51] LABS: Thyroid Peroxidase Antibodies 17.9 U/mL (0.0-33.0)
[2022-01-27 12:10] LABS: Estradiol <5.0 pg/mL
[2022-01-27 12:34] LABS: Insulin Level 7.1 mIU/mL (3.0-25.0)
[2022-01-27 12:47] LABS: Gliadin AB IgA, Deaminated NEGATIVE (NEGATIVE); Gliadin AB IgA, Unit 1.2 U/mL; Gliadin AB IgG, Deaminated NEGATIVE (NEGATIVE); Gliadin AB IgG, Unit <0.4 U/mL
[2022-01-28 07:18] LABS: % Iron Saturation 11.26 (12.00-45.00); Ferritin 56.8 ng/mL (10.0-291.0); Iron 53 ug/dL (50-170); Total Iron Binding Capacity 473 ug/dL (228-460)
== END | disposition home or self-care (01) ==
LOC: LABWHC1 07:24
PROVIDERS: ATTEND Nurse Practitioner
DX: K59.00 Constipation, unspecified (principal); K21.9 Gastro-esophageal reflux disease without esophagitis; N94.6 Dysmenorrhea, unspecified; G43.909 Migraine, unspecified, not intractable, without status migrainosus; R53.82 Chronic fatigue, unspecified; R11.2 Nausea with vomiting, unspecified; F32.A Depression, unspecified; R63.4 Abnormal weight loss
CPT/HCPCS: 36415; 80053; 82525; 82533; 82627; 82670; 82728; 83090; 83516; 83525; 83540; 83550; 83704; 83735; 84140; 84144; 84402; 84403; 84439; 84443; 84481; 84630; 85025; 86038; 86140; 86160; 86376; 86800

== ENCOUNTER 2023-04-19 14:48 | Emergency (ER) | payer OTHER ==
[2023-04-19] MEDS ORDERED: SODIUM CHLORIDE 0.9% 1,000 ML IV STA (16:22)
--- NOTE | 2023-04-19 16:23 | ED ---
Female Urogenital HPI - General Chief complaint: Urogenital Stated complaint: kidney infection Time Seen by Provider: 04/19/23 15:51 Source: patient Mode of arrival: ambulatory Limitations: no limitations - History of Present Illness Initial comments: 89-year-old female presenting to the ED with a chief complaint of urinary problem. Patient states that she was seen at her PCPs office yesterday due to frequency, urgency, and dysuria. States was diagnosed with the UTI and was given a shot of antibiotics. Patient states she is unsure which. She was also prescribed oral antibiotics which she is unsure of and has not taken yet. States since then worsening back pain and was advised to present to the ED for further evaluation. Denies fever or chills. Denies hematuria. No other complaints. - Related Data Home Medications Medication Instructions Recorded Confirmed norgestimate-ethinyl estradioL 1 tab PO HS 08/17/21 08/17/21 [Mononessa 28 Tablet] Previous Rx's Medication Instructions Recorded Ondansetron [Zofran ODT] 4 mg PO Q8HR #14 tab 08/17/21 Allergies Allergy/AdvReac Type Severity Reaction Status Date / Time No Known Allergies Allergy Verified 04/19/23 15:00 Review of Systems ROS Statement: Those systems with pertinent positive or pertinent negative responses have been documented in the HPI. ROS Other: All systems not noted in ROS Statement are negative. Past Medical History Past Medical History: No Reported History History of Any Multi-Drug Resistant Organisms: None Reported Past Surgical History: Appendectomy, Hernia Repair Additional Past Surgical History / Comment(s): umbillical hernia repair when Past Psychological History: Anxiety, Depression Smoking Status: Vaper Past Alcohol Use History: None Reported Past Drug Use History: Marijuana General Exam Limitations: no limitations General appearance: alert, in no apparent distress Neck exam: Present: normal inspection Respiratory exam: Present: normal lung sounds bilaterally Cardiovascular Exam: Present: regular rate, normal rhythm GI/Abdominal exam: Present: soft (Minimal tenderness to suprapubic region. No CVA tenderness to percussion bilaterally.) Extremities exam: Present: normal inspection Back exam: Present: normal inspection, other (Did ask to localize pain, patient points at lower lumbar paraspinal region.) Neurological exam: Present: alert, oriented X3 Course Vital Signs 04/19/23 14:58 Temperature 98.3 F Pulse Rate 93 Respiratory 20 Rate Blood Pressure 130/80 O2 Sat by Pulse 99 Oximetry Medical Decision Making - Medical Decision Making Was pt. sent in by a medical professional or institution (, CAROL, PHARMACIST AIDE, urgent care, hospital, or [place] health [facility] facility...) When possible be specific @ -No Did you speak to anyone other than the patient for history (EMS, parent, family, police, friend...)? What history was obtained from this source @ -No Did you review nursing and triage notes (agree or disagree)? Why? @ -I reviewed and agree with nursing and triage notes Were old charts reviewed (outside hosp., previous admission, EMS record, old EKG, old radiological studies, urgent care reports/EKG's, [place] health care facility records)? Report findings @ -No old charts were reviewed Differential Diagnosis (chest pain, altered mental status, abdominal pain women, abdominal pain men, vaginal bleeding, weakness, fever, dyspnea, syncope, headache, dizziness, GI bleed, back pain, seizure, CVA, palpatations, mental health, musculoskeletal)? @ -Differential Back Pain: Strain, zoster, cauda equina syndrome, epidural abscess, vertebral osteomyelitis, discitis, fracture, subluxation, disc herniation, DJD, spinal stenosis, dissection, AAA, pancreatitis, peptic ulcer disease, pyelonephritis, kidney stone, this is not meant to be an all-inclusive list. EKG interpreted by me (3pts min.). @ -As above X-rays interpreted by me (1pt min.). @ -None done CT interpreted by me (1pt min.). @ -None done U/S interpreted by me (1pt. min.). @ -None done What testing was considered but not performed or refused? (CT, X-rays, U/S, labs)? Why? @ -None What meds were considered but not given or refused? Why? @ -None Did you discuss the management of the patient with other professionals (prof moralez i.e. CAROL Chakraborty, PHARMACIST AIDE, lab, RT, psych nurse, social services designee, rubber gasket inspector trimmer, teacher, animal control officer, window caser)? Give summary @ -No Was smoking cessation discussed for >3mins.? @ -No Was critical care preformed (if so, how long)? @ -No Were there social determinants of health that impacted care today? How? (Homelessness, low income, unemployed, alcoholism, drug addiction, transportat ion, low edu. Level, literacy, decrease access to med. care, shelter, rehab)? @ -No Was there de-escalation of care discussed even if they declined (Discuss DNR or withdrawal of care, Hospice)? DNR status @ -No What co-morbidities impacted this encounter? (DM, HTN, Smoking, COPD, CAD, Cancer, CVA, ARF, Chemo, Hep., AIDS, mental health diagnosis, sleep apnea, morbid obesity)? @ -None Was patient admitted / discharged? Hospital course, mention meds given and route, prescriptions, significant lab abnormalities, going to OR and other pertinent info. @ -Discharge. CBC shows no elevation in white count. Chemistry panel unremarkable. UA only shows few bacteria. No evidence of pyelonephritis at this time. Symptoms likely musculoskeletal in nature. Provided 1 g of Rocephin and Toradol here with improvement of pain. Advised to continue outpatient antibiotics as prescribed. Discussed return precautions with patient who verbalizes agreement. Undiagnosed new problem with uncertain prognosis? @ -No Drug Therapy requiring intensive monitoring for toxicity (Heparin, Nitro, Insulin, Cardizem)? @ -No Were any procedures done? @ -No Diagnosis/symptom? @ -UTI, back pain Acute, or Chronic, or Acute on Chronic? @ -Acute Uncomplicated (without systemic symptoms) or Complicated (systemic symptoms)? @ -Uncomplicated Side effects of treatment? @ -No Exacerbation, Progression, or Severe Exacerbation? @ -No Poses a threat to life or bodily function? How? (Chest pain, [place], [place], pneumonia, PE, COPD, DKA, ARF, appy, cholecystitis, CVA, Diverticulitis, Homicidal, Suicidal, threat to staff... and all critical care pts) @ -No - Lab Data Result diagrams: 04/19/23 16:23 04/19/23 16:23 Lab Results 04/19/23 04/19/23 04/19/23 Range/Units 16:23 16:23 16:23 WBC 9.4 (3.8-10.6) k/uL RBC 4.50 (3.80-5.40) m/uL Hgb 14.6 (11.4-16.0) gm/dL Hct 42.2 (34.0-46.0) % MCV 93.6 (80.0-100.0) fL MCH 32.4 (25.0-35.0) pg MCHC 34.6 (31.0-37.0) g/dL RDW 11.9 (11.5-15.5) % Plt Count 190 (150-450) k/uL MPV 8.0 Neutrophils % 66 % Lymphocytes % 24 % Monocytes % 5 % Eosinophils % 3 % Basophils % 0 % Neutrophils # 6.2 (1.3-7.7) k/uL Lymphocytes # 2.2 (1.0-4.8) k/uL Monocytes # 0.5 (0-1.0) k/uL Eosinophils # 0.3 (0-0.7) k/uL Basophils # 0.0 (0-0.2) k/uL Sodium (137-145) mmol/L Potassium (3.5-5.1) mmol/L Chloride (98-107) mmol/L Carbon Dioxide (22-30) mmol/L Anion Gap mmol/L BUN (7-17) mg/dL Creatinine (0.52-1.04) mg/dL Est GFR (CKD-EPI)AfAm (>60 ml/min/1.73 sqM) Est GFR (CKD-EPI)NonAf (>60 ml/min/1.73 sqM) Glucose (74-99) mg/dL Calcium (8.4-10.2) mg/dL Total Bilirubin (0.2-1.3) mg/dL AST (14-36) U/L ALT (4-34) U/L Alkaline Phosphatase (38-126) U/L Total Protein (6.3-8.2) g/dL Albumin (3.5-5.0) g/dL Urine Color Yellow Urine Appearance Clear (Clear) Urine pH 6.0 (5.0-8.0) Ur Specific [place] 1.014 (1.001-1.035) Urine Protein Negative (Negative) Urine Glucose (UA) Negative (Negative) Urine Ketones Negative (Negative) Urine Blood Negative (Negative) Urine Nitrite Negative (Negative) Urine Bilirubin Negative (Negative) Urine Urobilinogen <2.0 (<2.0) mg/dL Ur Leukocyte Esterase Trace H (Negative) Urine RBC 1 (0-5) /hpf Urine WBC 1 (0-5) /hpf Ur Squamous Epith Cells 2 (0-4) /hpf Urine Bacteria Rare H (None) /hpf Urine Mucus Occasional H (None) /hpf Urine HCG, Qual Not Detected (Not Detectd) 04/19/23 Range/Units 16:23 WBC (3.8-10.6) k/uL RBC (3.80-5.40) m/uL Hgb (11.4-16.0) gm/dL Hct (34.0-46.0) % MCV (80.0-100.0) fL MCH (25.0-35.0) pg MCHC (31.0-37.0) g/dL RDW (11.5-15.5) % Plt Count (150-450) k/uL MPV Neutrophils % % Lymphocytes % % Monocytes % % Eosinophils % % Basophils % % Neutrophils # (1.3-7.7) k/uL Lymphocytes # (1.0-4.8) k/uL Monocytes # (0-1.0) k/uL Eosinophils # (0-0.7) k/uL Basophils # (0-0.2) k/uL Sodium 137 (137-145) mmol/L Potassium 3.8 (3.5-5.1) mmol/L Chloride 103 (98-107) mmol/L Carbon Dioxide 26 (22-30) mmol/L Anion Gap 8 mmol/L BUN 10 (7-17) mg/dL Creatinine 0.64 (0.52-1.04) mg/dL Est GFR (CKD-EPI)AfAm >90 (>60 ml/min/1.73 sqM) Est GFR (CKD-EPI)NonAf >90 (>60 ml/min/1.73 sqM) Glucose 113 H (74-99) mg/dL Calcium 9.2 (8.4-10.2) mg/dL Total Bilirubin 1.9 H (0.2-1.3) mg/dL AST 21 (14-36) U/L ALT 17 (4-34) U/L Alkaline Phosphatase 66 (38-126) U/L Total Protein 7.5 (6.3-8.2) g/dL Albumin 4.4 (3.5-5.0) g/dL Urine Color Urine Appearance (Clear) Urine pH (5.0-8.0) Ur Specific [place] (1.001-1.035) Urine Protein (Negative) Urine Glucose (UA) (Negative) Urine Ketones (Negative) Urine Blood (Negative) Urine Nitrite (Negative) Urine Bilirubin (Negative) Urine Urobilinogen (<2.0) mg/dL Ur Leukocyte Esterase (Negative) Urine RBC (0-5) /hpf Urine WBC (0-5) /hpf Ur Squamous Epith Cells (0-4) /hpf Urine Bacteria (None) /hpf Urine Mucus (None) /hpf Urine HCG, Qual (Not Detectd) Disposition Clinical Impression: UTI (urinary tract infection), Back pain Disposition: HOME SELF-CARE Condition: Good Instructions (If sedation given, give patient instructions): Urinary Tract Infection in Women (ED), Acute Low Back Pain (ED) Additional Instructions: Please return to the Emergency Department if symptoms worsen or any other concerns. Is patient prescribed a controlled substance at d/c from ED?: No Referrals: Claudette Lopez MD [Primary Care Provider] - 1-2 days Time of Disposition: 17:48
[2023-04-19 16:56] LABS: ALT 17 U/L (4-34); AST 21 U/L (14-36); African American GFR (CKD) >90 (>60 ml/min/1.73 sqM); Albumin 4.4 g/dL (3.5-5.0); Alkaline Phosphatase 66 U/L (38-126); Anion Gap 8 mmol/L; Blood Urea Nitrogen 10 mg/dL (7-17); Calcium 9.2 mg/dL (8.4-10.2); Carbon Dioxide 26 mmol/L (22-30); Chloride 103 mmol/L (98-107); Glucose 113 mg/dL (74-99); Non-African American GFR(CKD) >90 (>60 ml/min/1.73 sqM); Potassium 3.8 mmol/L (3.5-5.1); Sodium 137 mmol/L (137-145); Total Bilirubin 1.9 mg/dL (0.2-1.3); Total Protein 7.5 g/dL (6.3-8.2)
[2023-04-19 17:00] LABS: Appearance,Urine Clear (Clear); Bacteria,Urine Rare /hpf; Bilirubin,Urine Negative (Negative); Blood,Urine Negative (Negative); Color,Urine Yellow; Glucose,Urine (UA) Negative (Negative); Ketones,Urine Negative (Negative); Leukocyte Esterase,Urine Trace (Negative); Mucus,Urine Occasional /hpf; Nitrite,Urine Negative (Negative); Protein,Urine Negative (Negative); RBC,Urine 1 /hpf (0-5); Specific Gravity,Urine 1.014 (1.001-1.035); Squamous Epithelial Cell,Urine 2 /hpf (0-4); Urobilinogen,Urine <2.0 mg/dL (<2.0); WBC,Urine 1 /hpf (0-5)
[2023-04-19 17:20] LABS: Basophils % (A) 0 %; Eosinophils # (A) 0.3 k/uL (0-0.7); Eosinophils % (A) 3 %; HCT 42.2 % (34.0-46.0); HGB 14.6 gm/dL (11.4-16.0); Lymphocytes # (A) 2.2 k/uL (1.0-4.8); Lymphocytes % (A) 24 %; MCH 32.4 pg (25.0-35.0); MCHC 34.6 g/dL (31.0-37.0); MCV 93.6 fL (80.0-100.0); Monocytes # (A) 0.5 k/uL (0-1.0); Monocytes % (A) 5 %; Neutrophils # (A) 6.2 k/uL (1.3-7.7); Neutrophils % (A) 66 %; Platelet Count 190 k/uL (150-450); RDW 11.9 % (11.5-15.5); WBC 9.4 k/uL (3.8-10.6)
[2023-04-19] MEDS ORDERED: KETOROLAC 15 MG/ML 1 ML VIAL IVP STA (17:39)
[2023-04-19] MEDS ORDERED: cefTRIAXone IN SWFI 1,000 MG/10 ML SYRINGE IVP STA (17:43)
[2023-04-19 18:07] VITALS: BP 123/68; PULSE 79; RESP 18; TEMP 98.4
== END 2023-04-19 18:03 | disposition home or self-care (01) ==
LOC: EC 14:48
DX: N39.0 Urinary tract infection, site not specified (principal); M54.9 Dorsalgia, unspecified; F17.290 Nicotine dependence, other tobacco product, uncomplicated; F12.90 Cannabis use, unspecified, uncomplicated; Z86.59 Personal history of other mental and behavioral disorders
CPT/HCPCS: 36415; 80053; 85025; 81001; 81025; 99283; 96374; 96375; 96361; J0696; J1885

== ENCOUNTER → 2023-04-28 | Outpatient (CLI) | payer OTHER ==
--- NOTE | 2023-04-28 14:55 | XR ---
EXAMINATION TYPE: XR scoliosis survey DATE OF EXAM: 04/28/2023 8:15 AM COMPARISON: None CLINICAL INDICATION:Female, 28 years old with history of M54.50 Low Back pain, unspec.; TECHNIQUE: Frontal and lateral views of the spine while standing. FINDINGS: There are 12 rib-bearing thoracic vertebrae and 5 [id number] lumbar vertebrae. No significant scoliosis present. Minimal dextroscoliosis of upper thoracic spine angle 3 degrees. Th ere is no truncal shift of pelvic tilt. There is normal sagittal balance. No vertebral anomalies. The vertebral body heights, intervertebral disc spaces, and vertebral column alignment are well maintained. No evidence of spondylolysis or spondylolisthesis. The lungs are clear. The aortic knob, cardiac apex, and gastric bubble are left-sided. The bowel gas pattern is unremarkable. IMPRESSION: No significant scoliosis changes.
== END | disposition home or self-care (01) ==
LOC: RADXRMAIN 08:02
PROVIDERS: ATTEND Internal Medicine
DX: M54.50 Low back pain, unspecified (principal)
CPT/HCPCS: 72082

== ENCOUNTER 2023-05-08 13:51 | Emergency (ER) | payer OTHER ==
[2023-05-08 14:01] VITALS: RESP 18
--- NOTE | 2023-05-08 14:02 | ED ---
General Adult HPI - General Stated complaint: Upper Resp Time Seen by Provider: 05/08/23 14:01 Source: patient, RN notes reviewed Mode of arrival: ambulatory Limitations: no limitations - History of Present Illness Initial comments: 28-year-old female presents emergency Department with chief complaint of chest pain. Patient states his pleuritic nature states his started last 24 hours. Patient states that in the past but not alleviating. Patient denies any prior cardiac or lung disease she does have a history of scoliosis no abdominal complaints. Patient states also hurts to cough or sneeze. She does have some shortness of breath. - Related Data Home Medications Medication Instructions Recorded Confirmed norgestimate-ethinyl estradioL 1 tab PO HS 08/17/21 08/17/21 [Mononessa 28 Tablet] Previous Rx's Medication Instructions Recorded Ondansetron [Zofran ODT] 4 mg PO Q8HR #14 tab 08/17/21 Allergies Allergy/AdvReac Type Severity Reaction Status Date / Time No Known Allergies Allergy Verified 04/19/23 15:00 Review of Systems ROS Statement: Those systems with pertinent positive or pertinent negative responses have been documented in the HPI. ROS Other: All systems not noted in ROS Statement are negative. Past Medical History Past Medical History: No Reported History History of Any Multi-Drug Resistant Organisms: None Reported Past Surgical History: Appendectomy, Hernia Repair Additional Past Surgical History / Comment(s): umbillical hernia repair when Past Psychological History: Anxiety, Depression Smoking Status: Vaper Past Alcohol Use History: None Reported Past Drug Use History: Marijuana General Exam - General Exam Comments Initial Comments: Visual Physical Exam Vital signs reviewed General: Well-appearing, nontoxic, no acute distress. Head: Normocephalic, atraumatic Eyes: PERRLA, EOMI ENT: Airway patent Chest: Nonlabored breathing Skin: No visual rash, normal skin tone Neuro: Alert and oriented 3 Musculoskeletal: No gross abnormalities General appearance: alert, in no apparent distress Head exam: Present: atraumatic, normocephalic, normal inspection Eye exam: Present: normal appearance, PERRL, EOMI. Absent: scleral icterus, conjunctival injection, periorbital swelling ENT exam: Present: normal exam, normal oropharynx, mucous membranes moist Neck exam: Present: normal inspection, full ROM. Absent: tenderness, meningi smus, lymphadenopathy Respiratory exam: Present: normal lung sounds bilaterally, chest wall tenderness. Absent: respiratory distress, wheezes, rales, rhonchi, stridor Cardiovascular Exam: Present: regular rate, normal rhythm, normal heart sounds. Absent: systolic murmur, diastolic murmur, rubs, gallop, clicks GI/Abdominal exam: Present: soft, normal bowel sounds. Absent: distended, tenderness, guarding, rebound, rigid Course Vital Signs 05/08/23 05/08/23 13:59 16:34 Temperature 98.0 F 97.9 F Pulse Rate 98 61 Respiratory 18 18 Rate Blood Pressure 121/75 135/62 O2 Sat by Pulse 98 99 Oximetry EKG Findings - EKG Comments: EKG Findings:: EKG performed at 14:54 rate of 54 this is sinus rhythm with PAC noted QRS 89 QT status QTC 424/409 - EKG Results: EKG: interpreted by LYLE Medical Decision Making - Medical Decision Making I performed a quick note portion of discharged signed Tono Velazco PA-C Was pt. sent in by a medical professional or institution (CAROL Chakraborty, SHIPYARD PAINTER HELPER, urgent care, hospital, or senior living...) When possible be specific @ -No Did you speak to anyone other than the patient for history (EMS, parent, family, police, friend...)? What history was obtained from this source @ -No Did you review nursing and triage notes (agree or disagree)? Why? @ -I reviewed and agree with nursing and triage notes Were old charts reviewed (outside hosp., previous admission, EMS record, old EKG, old radiological studies, urgent care reports/EKG's, senior living records)? Report findings @ -No old charts were reviewed Differential Diagnosis (chest pain, altered mental status, abdominal pain women, abdominal pain men, vaginal bleeding, weakness, fever, dyspnea, syncope, headache, dizziness, GI bleed, back pain, seizure, CVA, palpatations, mental health, musculoskeletal)? @ -Differential Chest Pain: Stable Angina, Unstable Angina, STEMI, NSTEMI Aortic Dissection, Pneumothorax, Musculoskeletal, Esophageal Spasm GERD, Cholecystitis, Pancreatitis, Zoster, this is not meant to be an all-inclusive list. ble EKG interpreted by me (3pts min.). @ -As above X-rays interpreted by me (1pt min.). @ -Chest x-ray shows no acute process CT interpreted by me (1pt min.). @ -None done U/S interpreted by me (1pt. min.). @ -None done What testing was considered but not performed or refused? (CT, X-rays, U/S, labs)? Why? @ -None What meds were considered but not given or refused? Why? @ -None Did you discuss the management of the patient with other professionals (professionals i.e. DrEffie, PA, SHIPYARD PAINTER HELPER, lab, RT, psych nurse, director of social media marketing, director business, teacher, contract officer, rn case mgr)? Give summary @ -[Dr. Houston cardiology] Was smoking cessation discussed for >3mins.? @ -[No] Was critical care preformed (if so, how long)? @ -[No] Were there social determinants of health that impacted care today? How? (Ho melessness, low income, unemployed, alcoholism, drug addiction, transportation, low edu. Level, literacy, decrease access to med. care, shelter, rehab)? @ -[No] Was there de-escalation of care discussed even if they declined (Discuss DNR or withdrawal of care, Hospice)? DNR status @ -[No] What co-morbidities impacted this encounter? (DM, HTN, Smoking, COPD, CAD, Cancer, CVA, ARF, Chemo, Hep., AIDS, mental health diagnosis, sleep apnea, morbid obesity)? @ -[None] Was patient admitted / discharged? Hospital course, mention meds given and route, prescriptions, significant lab abnormalities, going to OR and other pertinent info. @ -[Discharge patient workup including labs, EKG, chest x-rays unremarkable patient has negative troponin, negative d-dimer. EKG shows frequent PACs case was discussed with Dr. Houston.] Undiagnosed new problem with uncertain prognosis? @ -[No] Drug Therapy requiring intensive monitoring for toxicity (Heparin, Nitro, Insulin, Cardizem)? @ -[No] Were any procedures done? @ -[No] Diagnosis/symptom? @ -[Atypical chest pain] Acute, or Chronic, or Acute on Chronic? @ -[Acute] Uncomplicated (without systemic symptoms) or Complicated (systemic symptoms)? @ -[Uncomplicated] Side effects of treatment? @ -[No] Exacerbation, Progression, or Severe Exacerbation? @ -[No] Poses a threat to life or bodily function? How? (Chest pain, [place], [place], pneumonia, PE, COPD, DKA, ARF, appy, cholecystitis, CVA, Diverticulitis, Homicidal, Suicidal, threat to staff... and all critical care pts) @ -[No] - Lab Data Result diagrams: 05/08/23 14:50 05/08/23 14:50 Lab Results 05/08/23 05/08/23 05/08/23 Range/Units 14:50 14:50 14:50 WBC 8.2 (3.8-10.6) k/uL RBC 4.17 (3.80-5.40) m/uL Hgb 13.7 (11.4-16.0) gm/dL Hct 40.0 (34.0-46.0) % MCV 95.9 (80.0-100.0) fL MCH 32.8 (25.0-35.0) pg MCHC 34.2 (31.0-37.0) g/dL RDW 11.7 (11.5-15.5) % Plt Count 184 (150-450) k/uL MPV 7.8 Neutrophils % 58 % Lymphocytes % 30 % Monocytes % 5 % Eosinophils % 5 % Basophils % 1 % Neutrophils # 4.8 (1.3-7.7) k/uL Lymphocytes # 2.5 (1.0-4.8) k/uL Monocytes # 0.4 (0-1.0) k/uL Eosinophils # 0.4 (0-0.7) k/uL Basophils # 0.1 (0-0.2) k/uL PT 10.3 (9.0-12.0) sec INR 1.0 (<1.2) APTT 24.4 (22.0-30.0) sec D-Dimer (<0.60) mg/L FEU Sodium 138 (137-145) mmol/L Potassium 4.6 (3.5-5.1) mmol/L Chloride 105 (98-107) mmol/L Carbon Dioxide 27 (22-30) mmol/L Anion Gap 6 mmol/L BUN 8 (7-17) mg/dL Creatinine 0.67 (0.52-1.04) mg/dL Est GFR (CKD-EPI)AfAm >90 (>60 ml/min/1.73 sqM) Est GFR (CKD-EPI)NonAf >90 (>60 ml/min/1.73 sqM) Glucose 134 H (74-99) mg/dL Calcium 9.1 (8.4-10.2) mg/dL Total Bilirubin 1.3 (0.2-1.3) mg/dL AST 25 (14-36) U/L ALT 20 (4-34) U/L Alkaline Phosphatase 66 (38-126) U/L Troponin I (0.000-0.034) ng/mL Total Protein 7.2 (6.3-8.2) g/dL Albumin 4.2 (3.5-5.0) g/dL 05/08/23 05/08/23 Range/Units 14:50 14:50 WBC (3.8-10.6) k/uL RBC (3.80-5.40) m/uL Hgb (11.4-16.0) gm/dL Hct (34.0-46.0) % MCV (80.0-100.0) fL MCH (25.0-35.0) pg MCHC (31.0-37.0) g/dL RDW (11.5-15.5) % Plt Count (150-450) k/uL MPV Neutrophils % % Lymphocytes % % Monocytes % % Eosinophils % % Basophils % % Neutrophils # (1.3-7.7) k/uL Lymphocytes # (1.0-4.8) k/uL Monocytes # (0-1.0) k/uL Eosinophils # (0-0.7) k/uL Basophils # (0-0.2) k/uL PT (9.0-12.0) sec INR (<1.2) APTT (22.0-30.0) sec D-Dimer 0.34 (<0.60) mg/L FEU Sodium (137-145) mmol/L Potassium (3.5-5.1) mmol/L Chloride (98-107) mmol/L Carbon Dioxide (22-30) mmol/L Anion Gap mmol/L BUN (7-17) mg/dL Creatinine (0.52-1.04) mg/dL Est GFR (CKD-EPI)AfAm (>60 ml/min/1.73 sqM) Est GFR (CKD-EPI)NonAf (>60 ml/min/1.73 sqM) Glucose (74-99) mg/dL Calcium (8.4-10.2) mg/dL Total Bilirubin (0.2-1.3) mg/dL AST (14-36) U/L ALT (4-34) U/L Alkaline Phosphatase (38-126) U/L Troponin I <0.012 (0.000-0.034) ng/mL Total Protein (6.3-8.2) g/dL Albumin (3.5-5.0) g/dL Disposition Clinical Impression: Atypical chest pain, PAC (premature atrial contraction) Disposition: HOME SELF-CARE Condition: Stable Instructions (If sedation given, give patient instructions): Chest Pain (ED) Additional Instructions: Please return to the Emergency Department if symptoms worsen or any other concerns. Is patient prescribed a controlled substance at d/c from ED?: No Referrals: Omi Malik MD [Primary Care Provider] - 1-2 days Time of Disposition: 16:15
[2023-05-08 15:01] LABS: Basophils # (A) 0.1 k/uL (0-0.2); Basophils % (A) 1 %; Eosinophils # (A) 0.4 k/uL (0-0.7); Eosinophils % (A) 5 %; HGB 13.7 gm/dL (11.4-16.0); Lymphocytes # (A) 2.5 k/uL (1.0-4.8); Lymphocytes % (A) 30 %; MCH 32.8 pg (25.0-35.0); MCHC 34.2 g/dL (31.0-37.0); MCV 95.9 fL (80.0-100.0); Mean Platelet Volume 7.8; Monocytes # (A) 0.4 k/uL (0-1.0); Monocytes % (A) 5 %; Neutrophils # (A) 4.8 k/uL (1.3-7.7); Neutrophils % (A) 58 %; Platelet Count 184 k/uL (150-450); RBC 4.17 m/uL (3.80-5.40); RDW 11.7 % (11.5-15.5); WBC 8.2 k/uL (3.8-10.6)
[2023-05-08 15:12] LABS: ALT 20 U/L (4-34); AST 25 U/L (14-36); African American GFR (CKD) >90 (>60 ml/min/1.73 sqM); Albumin 4.2 g/dL (3.5-5.0); Alkaline Phosphatase 66 U/L (38-126); Anion Gap 6 mmol/L; Blood Urea Nitrogen 8 mg/dL (7-17); Calcium 9.1 mg/dL (8.4-10.2); Carbon Dioxide 27 mmol/L (22-30); Chloride 105 mmol/L (98-107); Glucose 134 mg/dL (74-99); Non-African American GFR(CKD) >90 (>60 ml/min/1.73 sqM); Potassium 4.6 mmol/L (3.5-5.1); Sodium 138 mmol/L (137-145); Total Bilirubin 1.3 mg/dL (0.2-1.3); Total Protein 7.2 g/dL (6.3-8.2)
[2023-05-08 15:33] LABS: Partial Thromboplastin Time 24.4 sec (22.0-30.0); Prothrombin Time 10.3 sec (9.0-12.0)
--- NOTE | 2023-05-08 16:08 | XR ---
EXAMINATION TYPE: XR chest 2V DATE OF EXAM: 05/08/2023 COMPARISON: 04/17/2021 HISTORY: Chest pain TECHNIQUE: Frontal and lateral views of the chest are obtained. FINDINGS: There is no focal air space opacity. No evidence for pneumothorax. No pleural effusion. The cardiac silhouette size is within normal limits. The osseous structures are grossly intact. IMPRESSION: 1. No acute cardiopulmonary process.
[2023-05-08 16:35] VITALS: BP 135/62; PULSE 61; TEMP 97.9
== END 2023-05-08 16:25 | disposition home or self-care (01) ==
LOC: EC 13:51
DX: I49.1 Atrial premature depolarization (principal); F17.290 Nicotine dependence, other tobacco product, uncomplicated; F12.90 Cannabis use, unspecified, uncomplicated; Z86.59 Personal history of other mental and behavioral disorders
CPT/HCPCS: 36415; 71046; 80053; 84484; 85025; 85379; 85610; 85730; 93005; 99285

== ENCOUNTER → 2024-07-07 | Outpatient (CLI) | payer OTHER ==
--- NOTE | 2024-07-07 10:44 | US ---
EXAMINATION TYPE: US abdomen complete DATE OF EXAM: 07/07/2024 COMPARISON: CT: 08/17/21 CLINICAL INDICATION: Female, 29 years old with history of R19.8 IRREGULAR BOWEL HABITS R10.12 LUQ RAQUEL N; LUQ pain TECHNIQUE: Grayscale and color Doppler imaging of the abdomen was performed. FINDINGS: EXAM MEASUREMENTS: Liver Length: 11.8 cm Gallbladder Wall: 0.14 cm CBD: 0.36 cm, color Doppler imaging was utilized to isolate the common bile duct for measurement. Spleen: 11.0 cm Right Kidney: 9.6 x 4.9 x 3.9 cm Left Kidney: 10.0 x 3.9 x 3.9 cm AIR QUALITY INSTRUMENT SPECIALIST NOTES: Pancreas: wnl Liver: wnl Gallbladder: wnl Evidence for sonographic Todd's sign: No CBD: wnl Spleen: wnl Right Kidney: wnl Left Kidney: wnl Upper IVC: wnl Abd Aorta: wnl IMPRESSION: 1. Unremarkable abdomen ultrasound [facility], , 07/07/2024 10:42 AM
== END | disposition home or self-care (01) ==
LOC: RADUSWWP 09:10
PROVIDERS: ATTEND Family Medicine
DX: R19.8 Other specified symptoms and signs involving the digestive system and abdomen (principal); R10.12 Left upper quadrant pain
CPT/HCPCS: 76700